=== PATIENT | female | born 1930 | race African-American/Black ===

== ENCOUNTER 2017-05-26 12:49 | Emergency (ER) | payer MEDICARE, MEDICAID ==
[2017-05-26 13:42] LABS: Bilirubin Negative (Negative); Blood, Urine Moderate (Negative); Glucose, Urine (Dipstick) Negative (Negative); Ketone, Urine Negative (Negative); Nitrite Negative (Negative); Protein, Urine (Dipstick) 300 mg/dL (Neg-Trace)
[2017-05-26 13:46] LABS: Bacteria/HPF 4+ HPF (None Seen); RBC/HPF GREATER THAN 50-TNTC HPF (0-3); Squamous Epithelial 21-50 HPF (0-3)
[2017-05-26 14:07] LABS: Hyaline Casts/LPF 0-3 HYALINE CAST LPF (0-3 Hyaline)
--- NOTE | 2017-05-26 15:12 | RAD ---
TWO VIEWS OF THE CHEST: COMPARISON: 03/09/14. HISTORY: Cough with congestion. FINDINGS: Two views of the chest show a normal-size cardiomediastinal silhouette. There are bilateral mass-li ke opacities in the hilar regions which may represent enlarged hilar lymph nodes. Increased interst itial lung markings are present. There is no evidence of consolidation, new mass, or pleural effusi on. IMPRESSION: No evidence of acute cardiopulmonary disease. POS: [facility]
== END 2017-05-26 14:46 | disposition home or self-care (01) ==
LOC: ERS 12:49
DX: N30.00 Acute cystitis without hematuria (principal); R05 Cough; I25.10 Atherosclerotic heart disease of native coronary artery without angina pectoris; I25.2 Old myocardial infarction; I10 Essential (primary) hypertension; J44.9 Chronic obstructive pulmonary disease, unspecified; E11.40 Type 2 diabetes mellitus with diabetic neuropathy, unspecified; Z79.899 Other long term (current) drug therapy
CPT/HCPCS: 71020; 81003; 81015; 87086; 94640; J7620

== ENCOUNTER 2017-07-19 01:44 | Emergency (ER) | payer MEDICARE, MEDICAID ==
[2017-07-19 02:36] LABS: Bilirubin Negative (Negative); Blood, Urine Large (Negative); Glucose, Urine (Dipstick) Negative (Negative); Ketone, Urine Negative (Negative); Nitrite Negative (Negative); Protein, Urine (Dipstick) 100 mg/dL (Neg-Trace); Urobilinogen 0.2 mg/dL (0.2-1.0)
[2017-07-19 02:44] LABS: Bacteria/HPF 3+ HPF (None Seen); Hyaline Casts/LPF 0-3 HYALINE CAST LPF (0-3 Hyaline); RBC/HPF 0-3 HPF (0-3); Squamous Epithelial 0-3 HPF (0-3)
[2017-07-19] MEDS ORDERED: Ciprofloxacin 500 MG TAB ONE (02:47)
== END 2017-07-19 02:56 | disposition home or self-care (01) ==
LOC: ERS 01:44
DX: N30.00 Acute cystitis without hematuria (principal); I25.10 Atherosclerotic heart disease of native coronary artery without angina pectoris; I25.2 Old myocardial infarction; J44.9 Chronic obstructive pulmonary disease, unspecified; J45.909 Unspecified asthma, uncomplicated; E11.42 Type 2 diabetes mellitus with diabetic polyneuropathy; E11.22 Type 2 diabetes mellitus with diabetic chronic kidney disease; I12.9 Hypertensive chronic kidney disease with stage 1 through stage 4 chronic kidney disease, or unspecified chronic kidney disease; N18.9 Chronic kidney disease, unspecified; Z79.899 Other long term (current) drug therapy
CPT/HCPCS: 81003; 81015; 99283

== ENCOUNTER 2017-07-21 06:07 | Emergency (ER) | payer MEDICARE, OTHER ==
[2017-07-21] MEDS ORDERED: diphenhydrAMINE 25 MG CAP ONE (06:34)
[2017-07-21 07:16] LABS: Bilirubin Negative (Negative); Blood, Urine Large (Negative); Glucose, Urine (Dipstick) Negative (Negative); Ketone, Urine Negative (Negative); Nitrite Negative (Negative); Protein, Urine (Dipstick) 30 mg/dL (Neg-Trace); Urobilinogen 0.2 mg/dL (0.2-1.0)
[2017-07-21 07:18] LABS: Bacteria/HPF 1+ HPF (None Seen); Hyaline Casts/LPF 0-3 HYALINE CAST LPF (0-3 Hyaline); Squamous Epithelial 0-3 HPF (0-3)
[2017-07-21 07:36] LABS: Yeast-All Forms None Seen HPF (None Seen)
[2017-07-21] MEDS ORDERED: Nitrofurantoin Macrocrystal 50 MG CAP PO SCH (08:00)
== END 2017-07-21 08:31 | disposition home or self-care (01) ==
LOC: ERS 06:07
DX: N39.0 Urinary tract infection, site not specified (principal); E11.40 Type 2 diabetes mellitus with diabetic neuropathy, unspecified; I25.2 Old myocardial infarction; I10 Essential (primary) hypertension; I25.10 Atherosclerotic heart disease of native coronary artery without angina pectoris; J44.9 Chronic obstructive pulmonary disease, unspecified; Z79.899 Other long term (current) drug therapy
CPT/HCPCS: 81003; 81015; 87086; 99283